=== PATIENT | male | born 1940 | race Caucasian/White ===

== ENCOUNTER → 2018-10-06 | Outpatient (CLI) | payer MEDICARE ==
--- NOTE | 2018-10-07 12:56 | Myoview Stress Test ---
DATE OF STUDY: 10/06/2018 08:39:00 Stress Test - Treadmill ONLY STUDY: Exercise Myoview. The patient had resting perfusion images after injection of 11 mCi of technetium-99m Myoview. The patient exercised on Hubert protocol for a total of 9 minutes and 1 second reaching greater than 100% of his age predicted maximum. There was no ischemic changes and no chest pain. At maximum exercise, he was injected with 32 mCi of technetium-99m Myoview. Perfusion images were taken by rotational tomography. Comparison of resting and stress images shows minimal soft tissue attenuation in the inferobasal wall unchanged from rest to exercise, but all the other images show normal perfusion without any evidence of scar or ischemia. Additionally, gated wall motion images were obtained and calculated ejection fraction normal at 70% without regional wall motion abnormalities. FINAL IMPRESSION: 1. Normal stress Myoview for perfusion. 2. Normal left ventricular function with calculated ejection fraction of 70%. MD KATIE Elena/STERLING /[id number] cc: Christian Vides MD
== END ==
LOC: NM 08:18
PROVIDERS: ATTEND Internal Medicine Cardiovascular Disease
DX: R94.31 Abnormal electrocardiogram [ECG] [EKG] (principal)
CPT/HCPCS: 78452; 93017; A9502